=== PATIENT | male | born 1955 | race Caucasian/White ===

== ENCOUNTER 2017-11-03 11:06 | Emergency (ER) | payer BC ==
[2017-11-03 12:10] VITALS: BP 124/90
--- NOTE | 2017-11-03 12:57 | UC ---
Skin Complaint HPI - HPI Summary HPI Summary: Patient presents s/p biopsy of his tongue by Dr. [facility] Oral- surgery on 10.28.17. He states he has had increased swelling, pain of the site, that is beginning to radiate towards his jaw. He states he had been feeling quite well considering the biopsy, until a few days ago and now he reports that when he eats or drinks anything if it touches that right side of his tongue he he has burning pain. He states he is able to speak, drink and handle his own secretions. He called the office this morning and spoke to the nurse who had antibiotics and oral mouth wash sent to the pharmacy. They just wanted someone to check him before they get the antibiotics. And they state that while they were sitting in the exam room the office called tehm back and they can come over now to be gildardo if wanted. - History of Current Complaint Chief Complaint: UCGeneralIllness Time Seen by Provider: 11/03/17 12:44 Stated Complaint: RIGHT SIDE MOUTH COMPLAINT Hx Obtained From: Patient Onset/Duration: Gradual Onset, Lasting Days Skin Exposure Onset/Duration: Days Ago Timing: Constant Onset Severity: Mild Current Severity: Moderate Location: Discrete, Other - right side of tongue and jaw. Character: Swelling, Redness, Painful Aggravating Factor(s): Touch Alleviating Factor(s): Other - chewing on the left side on his mouth Associated Signs & Symptoms: Positive: Negative Review of Systems Constitutional: Negative Skin: Negative Eyes: Negative ENT: Other - pain on right side on tongue Respiratory: Negative Cardiovascular: Negative Gastrointestinal: Negative Genitourinary: Negative Motor: Negative Is Patient Immunocompromised?: No All Other Systems Reviewed And Are Negative: Yes PMH/Surg Hx/FS Hx/Imm Hx Previously Healthy: Yes - Surgical History Surgical History: Yes Surgery Procedure, Year, and Place: wisdom teeth,thumb repair - Family History Known Family History: Positive: None - Social History Alcohol Use: Occasionally Substance Use Type: None Smoking Status (MU): Never Smoked Tobacco Physical Exam Triage Information Reviewed: Yes Appearance: Well-Appearing Vital Signs: Initial Vital Signs Temp 98 F 11/03/17 12:06 Pulse 56 11/03/17 12:06 Resp 16 11/03/17 12:06 BP 124/90 11/03/17 12:06 Pulse Ox 100 11/03/17 12:06 Vital Signs Reviewed: Yes Eye Exam: Normal ENT Exam: Normal ENT: Positive: Other - tongue; inspection, right side of tongue with biospy site lateral aspect, base necrotic with yellow necrotic tissue, and surrounding mild erythma and edema. pharynx clear, uvual raises midline on phonaiton. Dental Exam: Normal Neck exam: Normal Neck: Positive: 1 Respiratory Exam: Normal Cardiovascular Exam: Normal Abdominal Exam: Normal Skin Exam: Normal Course/Dx - Course Course Of Treatment: tongue biopsy - Differential Diagnoses - Skin Complaint Differential Diagnoses: Other - tongue biospy cellulitis - Diagnoses Provider Diagnoses: tongue biospy. cellulitis Discharge - Discharge Plan Condition: Stable Disposition: HOME Patient Education Materials: Skin biopsy (ED) Referrals: No Primary Care Phys,NOPCP [Primary Care Provider] -
== END 2017-11-03 12:59 | disposition home or self-care (01) ==
LOC: UCEAST 11:06
DX: K12.2 Cellulitis and abscess of mouth (principal); K14.0 Glossitis; Z98.890 Other specified postprocedural states
CPT/HCPCS: 99211; G0463

== ENCOUNTER 2018-08-18 06:41 | Day surgery (SDC) | payer BC ==
[~2018-08-18 06:41] MED LIST: Acetaminophen TAB* 325 MG PO PRN; Buffered Lidocaine 0.9% SYRIN* 5 ML/SYR SYRINGE INTRADERM ONE; mitoMYcin PWD* 0.2 MG in Sterile Water for Inj* 1 ML OPHTHALMIC SCH
[2018-08-18] MEDS ORDERED: Midazolam* 1 MG/ML 5 ML VIAL (5 MG) ONE (07:50)
[2018-08-18] MEDS ORDERED: fentaNYL* 50 MCG/ML 2 ML VIAL (100 MCG VIAL) ONE (07:50)
[2018-08-18] MEDS ORDERED: Midazolam* 1 MG/ML 2 ML VIAL (2 MG) ONE (08:39)
[2018-08-18 09:02] VITALS: BP 100/57
[2018-08-18] MEDS ORDERED: Lidocaine 2% EPI 1:200000 MPF*10-20 ML VIAL ONE (11:51)
[2018-08-18] MEDS ORDERED: Proparacaine 0.5% OPHTH.SOL* 15 ML BTL ONE (11:51)
[2018-08-18] MEDS ORDERED: Povidone Iodine 5% OPTH* 30 ML BTL ONE (11:51)
[2018-08-18] MEDS ORDERED: Neomycin/Polymy/Dex OPTH.SUSP* MAXITROL 0.1% 5 ML ONE (11:51)
[2018-08-18] MEDS ORDERED: Lidocaine 1%* 5 ML VIAL ONE (11:51)
--- NOTE | 2018-08-19 01:55 | OP ---
DATE OF OPERATION: 08/18/18 [facility] DATE OF : 57 SURGEON: Delfino Aguilar MD ANESTHESIA: Local with MAC. PRE-OP DIAGNOSIS: Open-angle glaucoma, left eye. POST-OP DIAGNOSIS: OPERATIVE PROCEDURE: XEN stent, left eye. COMPLICATIONS: None. DESCRIPTION OF PROCEDURE: The patient was prepped and draped in the usual sterile fashion around the left eye. Lid speculum was placed. 2% lidocaine with epinephrine on the cornea. Paracentesis made at the 1 o'clock position with 75 blade. Anterior chamber irrigated with 1% non-preservative intracameral lidocaine followed by Healon. Clear corneal incision made at the 5 o'clock position with a 1.8 mm keratome. Anterior chamber reinflated with Healon. Mitomycin-C 0.2 mg/mL injected subconjunctivally, superior fornix. XEN implant placed at the 11 o'clock position without difficulty. Anterior chamber irrigated with balanced salt solution. Topical Maxitrol given. [id number]/[facility] #: [id number] [facility]
== END 2018-08-18 09:10 | disposition home or self-care (01) ==
LOC: OREAST 06:41
PROVIDERS: ATTEND Specialist
DX: H40.1122 Primary open-angle glaucoma, left eye, moderate stage (principal); H40.1111 Primary open-angle glaucoma, right eye, mild stage; H25.13 Age-related nuclear cataract, bilateral; D69.6 Thrombocytopenia, unspecified
CPT/HCPCS: A9270-GY; C1725; J2250; J3010; J9280

== ENCOUNTER 2024-11-13 11:28 | Observation (INO) ==
[2024-11-13 12:01] LABS: Activated Partial Thrombo Time 34.3 seconds (26.0-38.0); INR 1.15 (0.85-1.14)
[2024-11-13 12:09] LABS: Hematocrit 46.2 % (38-53); Hemoglobin 15.9 g/dL (13.2-16.3); Mean Corpuscular Hemoglobin 31.7 pg (27-33); Mean Corpuscular Hgb Conc 34.3 g/dL (31-36); Mean Corpuscular Volume 92.3 fL (80-97); Red Cell Distribution Width 13.2 % (12-17)
[2024-11-13 12:19] LABS: Albumin 4.7 g/dL (3.5-5.7); Albumin/Globulin Ratio 1.7 (1-3); Calcium 10.1 mg/dL (8.6-10.3); Creatinine, Serum 0.82 mg/dL (0.67-1.17); Direct Bilirubin 0.2 mg/dL (0.03-0.18); Globulin 2.7 g/dL (2-4); HDL Cholesterol 43.9 mg/dL; Indirect Bilirubin 1.4 mg/dL (0.3-1.0); Potassium 4.5 mmol/L (3.5-5.0); Total Bilirubin 1.6 mg/dL (0.2-1.0); Total Protein 7.4 g/dL (6.4-8.9); eGFR CKD-EPI 95.7 (>60)
[2024-11-13] MEDS ORDERED: Sulfur Hexaflouride MICROSPHR 25 MG VIAL IV PRN (13:07)
[2024-11-13 13:20] LABS: ABS Basophils 0.1 10^3/uL (0.0-0.1); ABS Eosinophils 0.1 10^3/uL (0.0-0.5); ABS Lymphocytes 1.5 10^3/uL (1.0-4.8); ABS Monocytes 0.5 10^3/uL (0.0-1.1); ABS Neutrophils 2.8 10^3/uL (1.5-7.6); ABS Nucleated RBC 0.01 10^3/ul; Lymphocyte % 30.2 %; Nucleated Red Blood Cells % 0.1 %/100WBC (0.0-0.8); Platelet Count Platelets clumped. 10^3/uL (150-450)
[2024-11-13 15:31] LABS: Urine Appearance Turbid; Urine Bilirubin Negative (Negative); Urine Blood Negative (Negative); Urine Color Light-Yellow; Urine Glucose Negative (Negative); Urine Ketones Negative (Negative); Urine Nitrite Negative (Negative); Urine Protein Trace (Negative); Urine Specific Gravity 1.049 (1.002-1.030); Urine Urobilinogen Negative (Negative); Urine pH 7.5 (5.0-8.0)
[2024-11-13 18:25] LABS: Platelet Count, Citrated 111 10^3/ul (150-450)
[2024-11-14] MEDS: PTO:Brimonidine 0.2% 5 ML BTL BOTH EYES SCH (10:51)
[2024-11-14] MEDS: PTO:Dorzolamide/Timolol OPTH (NF) 10 ML BOT BOTH EYES SCH ×2 (10:51→15:30)
[2024-11-14] MEDS: PTO:Brimonidine P 0.1%(NF) 1 DROP BTL BOTH EYES SCH (15:30)
[2024-11-14 18:26] VITALS: BP 110/63
[2024-11-14] MEDS ORDERED: PTO:Latanoprost 0.005% 2.5 ml BTL BOTH EYES SCH (21:00)
[2024-11-17 02:07] LABS: Phospholipid Ab IgG < 9.4 GPL; Phospholipid Ab IgM, S < 9.4 MPL
[2024-11-17 02:14] LABS: Phospholipid (Cardiolipin) IgA < 9.4 APL
== END 2024-11-14 20:00 | disposition home or self-care (01) ==
LOC: EDHOLD 11:28 → ED 11:28 → EDHOLD 14:40 → MEDTELE 19:44
PROVIDERS: ADMIT Internal Medicine; ATTEND Internal Medicine